=== PATIENT | female | born 1955 ===

== ENCOUNTER → 2021-03-03 | Outpatient (REF) | payer MEDICARE, BC ==
[2021-03-03 21:12] LABS: CREATININE, URINE 59.1 MG/DL; MALB URINE SIEMENS 6.7 MG/L; MAU/CREAT RATIO 11.3 MCG/MG (0.0-30.0)
== END ==
LOC: M LAB REF 15:36
PROVIDERS: ATTEND Nurse Practitioner Family
DX: E11.65 Type 2 diabetes mellitus with hyperglycemia (principal)